=== PATIENT | female | born 1940 | race Asian ===

== ENCOUNTER 2017-01-01 19:58 | Emergency (ER) | payer MEDICARE, MEDICAID ==
[~2017-01-01] VITALS: Ht 162.6 cm; Wt 59.0 kg
[2017-01-01] MEDS ORDERED: Morphine Sulfate 4mg/ml Inj IVP ONE (20:15)
[2017-01-01] MEDS ORDERED: Sodium Chloride 500ML 500 ML IVPB ONE (20:15)
[2017-01-01 20:42] LABS: BASOPHILS % (AUTO) 1.4 % (0.0-2.0); EOSINOPHILS % (AUTO) 1.3 % (0.0-3.0); LYMPHOCYTES % (AUTO) 32.5 % (20.0-45.0); MEAN CORPUSCULAR HEMOGLOBIN 29.5 PG (27.0-31.0); MEAN CORPUSCULAR HGB CONC 30.4 G/DL (32.0-36.0); MEAN CORPUSCULAR VOLUME 97 FL (80-99); MEAN PLATELET VOLUME 5.2 FL (6.5-10.1); MONOCYTES % (AUTO) 7.5 % (1.0-10.0); NEUTROPHILS % (AUTO) 57.3 % (45.0-75.0); PLATELET COUNT 289 K/UL (150-450); RED BLOOD COUNT 4.42 M/UL (4.20-5.40); RED CELL DISTRIBUTION WIDTH 11.2 % (11.6-14.8); WHITE BLOOD COUNT 7.3 K/UL (4.8-10.8)
[2017-01-01 20:58] LABS: ALANINE AMINOTRANSFERASE 58 U/L (12-78); ALBUMIN/GLOBULIN RATIO 0.9 (1.0-2.7); ANION GAP 8 (5-15); ASPARTATE AMINO TRANSFERASE 78 U/L (15-37); CALCIUM 9.1 MG/DL (8.5-10.1); CARBON DIOXIDE 28 MMOL/L (21-32); CHLORIDE 106 MMOL/L (98-107); CREATININE 0.6 MG/DL (0.55-1.30); POTASSIUM 3.6 MMOL/L (3.5-5.1); SODIUM 142 MMOL/L (136-145); TOTAL PROTEIN 7.3 G/DL (6.4-8.2)
[2017-01-01 21:30] VITALS: BP 122/70
[2017-01-01 22:34] VITALS: BP 139/81
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
== END 2017-01-01 22:34 | disposition short-term general hospital (02) ==
LOC: EDBD 19:58 → EMR 21:24
DX: S12.491A Other nondisplaced fracture of fifth cervical vertebra, initial encounter for closed fracture (principal); S12.591A Other nondisplaced fracture of sixth cervical vertebra, initial encounter for closed fracture; S12.691A Other nondisplaced fracture of seventh cervical vertebra, initial encounter for closed fracture; S27.0XXA Traumatic pneumothorax, initial encounter; V43.52XA Car driver injured in collision with other type car in traffic accident, initial encounter; Y92.410 Unspecified street and highway as the place of occurrence of the external cause
CPT/HCPCS: 36415; 51702; 70450; 71260; 72125; 74177; 80053; 85025; 96361; 96374; 99291; J2270; J7040; Q9967